=== PATIENT | male | born 1940 | race Caucasian/White ===

== ENCOUNTER 2023-08-20 07:41 | Inpatient (IN) | payer BC ==
[2023-08-20] VITALS (14 sets, daily range): BP systolic 136–155; BP diastolic 63–80; PULSE 60–77; RESP 16–21; TEMP 97.6–98.5; O2SAT 90–100
[~2023-08-20] VITALS: Ht 180.3 cm; Wt 104.2 kg
[~2023-08-20 07:41] MED LIST: ACET-1304 PO; ACETAMINOPHEN IV 100 ML IV ONE; CHLO25TA2 PO; GLIM2TAB33 PO; MET50T PO; ROSU20TA14 PO; ceFAZolin 2 GM/D5W100ml 100 ML IV ONE
[2023-08-20] MEDS ORDERED: TRANEXAMIC ACID 20 ML ONE (07:54)
[2023-08-20] MEDS ORDERED: BUPIVACAINE HCL 0.25% P/F 10 ML VIAL ONE (07:56)
[2023-08-20] MEDS ORDERED: VANCOMYCIN HCL 1000 MG VL ONE (07:58)
[2023-08-20] MEDS ORDERED: PREGABALIN CAPSULE 75 MG CAP PO ONE (08:15)
[2023-08-20] MEDS ORDERED: ACETAMINOPHEN IV 1000 MG/100ML (10MG/ML) IV ONE (08:15)
[2023-08-20] MEDS ORDERED: CELECOXIB 100 MG CAP PO ONE (08:15)
[2023-08-20] MEDS ORDERED: fentaNYL CITRATE 100 MCG/2 ML VL ONE (08:47)
[2023-08-20] MEDS ORDERED: MIDAZOLAM HCL 2MG/2ML 2ml VIAL (1mg/ml) ONE (08:47)
[2023-08-20] MEDS ORDERED: TETRACAINE 1% INJ 2 ML VIAL IJ ONE (09:08)
[2023-08-20] MEDS ORDERED: HYDROmorphone HCL 2 MG/ML VL/or syr IV PRN ×2 (09:30→10:00)
[2023-08-20] MEDS ORDERED: ONDANSETRON HCL 4 MG/2 ML VIAL IV PRN ×2 (09:30→10:00)
[2023-08-20] MEDS ORDERED: NITROGLYCERIN 0.4 MG SL TAB SL PRN (09:30)
[2023-08-20] MEDS ORDERED: MORPHINE SULFATE INJ 2 MG/ml SYRG IV PRN (09:30)
[2023-08-20] MEDS ORDERED: DEXTROSE (50%) 50ML SYRG IV PRN (09:30)
[2023-08-20] MEDS ORDERED: ACETAMINOPHEN 325 MG TAB PO PRN (09:30)
[2023-08-20] MEDS: ceFAZolin 1GM/50ML 50 ML IV SCH ×3 (09:30→22:32)
[2023-08-20] MEDS ORDERED: ePHEDrine SULFATE 50 MG/ML AMP IV PRN (10:00)
[2023-08-20] MEDS ORDERED: MIDAZOLAM HCL 2MG/2ML 2ml VIAL (1mg/ml) IV PRN (10:00)
[2023-08-20] MEDS ORDERED: NALOXONE HCL 0.4 MG/ML VIAL IV PRN (10:00)
[2023-08-20] MEDS ORDERED: LABETALOL HCL 5 MG/ML 4ML SYRINGE IV PRN (10:00)
[2023-08-20] MEDS ORDERED: DexAMETHasone SOD PHOS 10MG/1ML VIAL INJ IV PRN (10:00)
[2023-08-20] MEDS ORDERED: ACCU-CHEK COMFORT CURVE STRIP VI ONE (10:00)
[2023-08-20] MEDS ORDERED: DexAMETHasone SOD PHOS 10MG/1ML VIAL INJ ONE (10:23)
[2023-08-20] MEDS ORDERED: PROPOFOL 10 MG/ML 20 ML IV ONE (10:23)
[2023-08-20] MEDS: InsuLIN REG 1unit/0.01ml Soln (100units/ml) SC SCH ×3 (11:05→22:00)
[2023-08-20] MEDS: ACCU-CHEK COMFORT CURVE STRIP VI SCH ×3 (11:05→22:31)
[2023-08-20] MEDS: SODIUM CHLOR 0.9% PF (SALINE LOCK) 10ML VIAL/SYR IV SCH ×2 (14:00→22:31)
[2023-08-20 15:17] LABS: Basophils # (auto) 0 10 ^3/uL (0-0.2); Basophils % (auto) 0.3 % (0.0-2.0); Eosinophils # (auto) 0 10 ^3/uL (0-0.8); Eosinophils % (auto) 0.1 % (0.0-7.0); Hematocrit 42.1 % (41.0-53.0); Lymphocytes # (auto) 0.8 10 ^3/uL (0.4-5.4); Lymphocytes % (auto) 7.1 % (10.0-50.0); Mean Corpuscular Hemoglobin 32.9 pg (28.0-32.0); Mean Corpuscular Hgb Conc. 33.3 g/dL (32.0-36.0); Mean Corpuscular Volume 98.7 fL (80.0-100.0); Monocytes # (auto) 0.2 10 ^3/uL (0-1.3); Monocytes % (auto) 1.6 % (0.0-12.0); Neutrophils # (auto) 9.9 10 ^3/uL (1.6-8.6); Neutrophils % (auto) 90.9 % (37.0-80.0); Red Blood Cells 4.26 10^6/uL (4.5-5.90); Red Cell Distribution Width 12.7 % (11.8-14.3); White Blood Cell 10.9 10^3/uL (4.4-10.8)
[2023-08-20 15:30] LABS: INR 1.08 (0.9-1.15); Prothrombin Time 11.3 sec (9.3-11.8)
[2023-08-20 15:46] LABS: Alanine Aminotransferase 37 U/L (7-40); Alkaline Phosphatase 70 U/L (46-116); Anion Gap 7 (5-15); Aspartate Aminotransferase 29 U/L (13-40); BUN/Creatinine Ratio 22.7 (10.0-20.0); Blood Urea Nitrogen 27 mg/dL (9-23); Calcium 8.8 mg/dL (8.5-10.1); Carbon Dioxide 25 mmol/L (20-30); Chloride 105 mmol/L (98-107); Glucose 199 mg/dL (74-106); LDL Cholesterol 76 mg/dL (< 100); Potassium 4.4 mmol/L (3.5-5.1); Sodium 137 mmol/L (136-145); Triglycerides 199 mg/dL (< 150)
[2023-08-20 15:47] LABS: Bilirubin, Total 0.4 mg/dL (0.2-1.0); Cholesterol 134 mg/dL (< 200); HDL Cholesterol 27 mg/dL (40-59); Total Protein 6.3 g/dL (5.7-8.2)
[2023-08-20 15:58] LABS: Magnesium 1.8 mg/dL (1.6-2.6)
[2023-08-20] MEDS: GLIMEPIRIDE 2 MG TAB PO SCH ×2 (17:28→22:31)
[2023-08-20] MEDS: LACTATED RINGER'S 1,000 ML IV SCH ×2 (17:28→19:30)
[2023-08-20] MEDS: Chlorthalidone 25 MG PO SCH (17:28)
[2023-08-20] MEDS: DOCUSATE SOD 100 MG CAP PO SCH ×2 (17:29→22:31)
[2023-08-20] MEDS: METOPROLOL TARTRATE 50 MG TAB PO SCH (17:29)
[2023-08-20] MEDS: ENOXAPARIN SOD 40 MG/0.4 ML SYRINGE SC SCH (17:29)
[2023-08-20] MEDS: ATORVASTATIN 20 MG TAB PO SCH (22:31)
[2023-08-21] VITALS (22 sets, daily range): BP systolic 92–158; BP diastolic 42–88; PULSE 60–85; RESP 17–20; TEMP 98.1; O2SAT 92–100
[2023-08-21] MEDS: OXYCODONE W/ ACETAMINOPHEN 5/325MG TABLET PO PRN ×2 (03:28→20:14)
[2023-08-21] MEDS: SODIUM CHLOR 0.9% PF (SALINE LOCK) 10ML VIAL/SYR IV SCH ×3 (06:00→21:16)
[2023-08-21] MEDS: InsuLIN REG 1unit/0.01ml Soln (100units/ml) SC SCH ×4 (06:26→21:18)
[2023-08-21] MEDS: ACCU-CHEK COMFORT CURVE STRIP VI SCH ×4 (06:26→21:19)
[2023-08-21 06:32] LABS: Basophils # (auto) 0 10 ^3/uL (0-0.2); Basophils % (auto) 0.1 % (0.0-2.0); Eosinophils # (auto) 0 10 ^3/uL (0-0.8); Hematocrit 40.9 % (41.0-53.0); Hemoglobin 14.1 g/dL (13.5-17.5); Lymphocytes # (auto) 0.9 10 ^3/uL (0.4-5.4); Lymphocytes % (auto) 5.7 % (10.0-50.0); Mean Corpuscular Hemoglobin 33.3 pg (28.0-32.0); Mean Corpuscular Hgb Conc. 34.3 g/dL (32.0-36.0); Mean Corpuscular Volume 97.1 fL (80.0-100.0); Monocytes # (auto) 0.7 10 ^3/uL (0-1.3); Monocytes % (auto) 4.6 % (0.0-12.0); Neutrophils # (auto) 13.7 10 ^3/uL (1.6-8.6); Neutrophils % (auto) 89.6 % (37.0-80.0); Red Blood Cells 4.22 10^6/uL (4.5-5.90); Red Cell Distribution Width 12.5 % (11.8-14.3); White Blood Cell 15.3 10^3/uL (4.4-10.8)
[2023-08-21 06:44] LABS: Anion Gap 12 (5-15); Carbon Dioxide 20 mmol/L (20-30); Chloride 103 mmol/L (98-107); Potassium 4.1 mmol/L (3.5-5.1); Sodium 135 mmol/L (136-145)
[2023-08-21 06:45] LABS: Calcium 8.7 mg/dL (8.7-10.4)
[2023-08-21 06:50] LABS: BUN/Creatinine Ratio 19.3 (10.0-20.0); Blood Urea Nitrogen 26 mg/dL (9-23); Glucose 216 mg/dL (74-106)
[2023-08-21] MEDS: Chlorthalidone 25 MG PO SCH (10:00)
[2023-08-21] MEDS: DOCUSATE SOD 100 MG CAP PO SCH ×2 (10:45→21:17)
[2023-08-21] MEDS: ENOXAPARIN SOD 40 MG/0.4 ML SYRINGE SC SCH (10:45)
[2023-08-21] MEDS: GLIMEPIRIDE 2 MG TAB PO SCH ×2 (10:49→21:10)
[2023-08-21] MEDS: METOPROLOL TARTRATE 50 MG TAB PO SCH (10:50)
[2023-08-21] MEDS: ATORVASTATIN 20 MG TAB PO SCH (21:17)
[2023-08-22] MEDS ORDERED: HALOPERIDOL LACTATE 5 MG/ML INJ VIAL IM PRN (03:30)
[2023-08-22] MEDS: OXYCODONE W/ ACETAMINOPHEN 5/325MG TABLET PO PRN ×2 (04:01→15:02)
[2023-08-22 05:00] VITALS: BP 140/60; PULSE 82; RESP 18; TEMP 98; O2SAT 92
[2023-08-22] MEDS: SODIUM CHLOR 0.9% PF (SALINE LOCK) 10ML VIAL/SYR IV SCH ×2 (05:47→14:00)
[2023-08-22] MEDS: InsuLIN REG 1unit/0.01ml Soln (100units/ml) SC SCH ×3 (06:41→17:00)
[2023-08-22] MEDS: ACCU-CHEK COMFORT CURVE STRIP VI SCH ×3 (06:41→17:00)
[2023-08-22 06:52] LABS: Basophils # (auto) 0 10 ^3/uL (0-0.2); Basophils % (auto) 0.1 % (0.0-2.0); Eosinophils # (auto) 0 10 ^3/uL (0-0.8); Eosinophils % (auto) 0.2 % (0.0-7.0); Hematocrit 40.9 % (41.0-53.0); Hemoglobin 13.7 g/dL (13.5-17.5); Lymphocytes # (auto) 1.4 10 ^3/uL (0.4-5.4); Lymphocytes % (auto) 10.2 % (10.0-50.0); Mean Corpuscular Hemoglobin 32.6 pg (28.0-32.0); Mean Corpuscular Hgb Conc. 33.6 g/dL (32.0-36.0); Mean Corpuscular Volume 97.1 fL (80.0-100.0); Monocytes # (auto) 1.5 10 ^3/uL (0-1.3); Monocytes % (auto) 10.5 % (0.0-12.0); Neutrophils # (auto) 11.1 10 ^3/uL (1.6-8.6); Red Blood Cells 4.21 10^6/uL (4.5-5.90); Red Cell Distribution Width 12.7 % (11.8-14.3)
[2023-08-22 07:00] LABS: Alanine Aminotransferase 25 U/L (7-40); Albumin 4.2 g/dL (3.2-4.8); Alkaline Phosphatase 63 U/L (46-116); Anion Gap 12 (5-15); Aspartate Aminotransferase 41 U/L (13-40); BUN/Creatinine Ratio 18.4 (10.0-20.0); Blood Urea Nitrogen 27 mg/dL (9-23); Calcium 9.5 mg/dL (8.5-10.1); Carbon Dioxide 22 mmol/L (20-30); Chloride 105 mmol/L (98-107); Glucose 183 mg/dL (74-106); Potassium 3.7 mmol/L (3.5-5.1); Sodium 139 mmol/L (136-145)
[2023-08-22 07:01] LABS: Bilirubin, Total 0.6 mg/dL (0.2-1.0)
[2023-08-22 08:00] VITALS: PULSE 86; PULSE 91; RESP 19; O2SAT 100
[2023-08-22] MEDS ORDERED: LACTATED RINGER'S 1,000 ML IV ONE (08:30)
[2023-08-22 09:25] VITALS: BP 123/54; PULSE 86; RESP 18; TEMP 98.2; O2SAT 96
[2023-08-22] MEDS: ENOXAPARIN SOD 40 MG/0.4 ML SYRINGE SC SCH (09:32)
[2023-08-22] MEDS: Chlorthalidone 25 MG PO SCH (09:34)
[2023-08-22] MEDS: DOCUSATE SOD 100 MG CAP PO SCH (09:34)
[2023-08-22] MEDS: METOPROLOL TARTRATE 50 MG TAB PO SCH (09:34)
[2023-08-22] MEDS: GLIMEPIRIDE 2 MG TAB PO SCH (09:34)
[2023-08-22 13:00] VITALS: BP 115/44; PULSE 65; RESP 18; TEMP 98; O2SAT 94
[2023-08-22 15:30] VITALS: BP 115/44; PULSE 65; RESP 18; TEMP 98; O2SAT 95
[2023-08-22 16:25] VITALS: BP 155/57; PULSE 62; RESP 20; O2SAT 96
[2023-08-22] MEDS ORDERED: GLYCERIN ADULT RECTAL SUPP PR ONE (16:45)
== END 2023-08-22 17:51 | DRG 470 ==
LOC: SUR 07:41 → TELE 09:31 → TELE-CENTR 16:01 → CENTRAL 08-21 15:12 → TELE-CENTR 08-21 15:16
PROVIDERS: ADMIT Orthopaedic Surgery Adult Reconstructive Orthopaedic Surgery; ATTEND Orthopaedic Surgery Adult Reconstructive Orthopaedic Surgery
PROC: 0SRC0J9 Replacement of Right Knee Joint with Synthetic Substitute, Cemented, Open Approach (ICD-10-PCS; principal; 2023-08-20 09:18)
DX: M17.11 Unilateral primary osteoarthritis, right knee (principal); N17.9 Acute kidney failure, unspecified; I12.9 Hypertensive chronic kidney disease with stage 1 through stage 4 chronic kidney disease, or unspecified chronic kidney disease; E11.22 Type 2 diabetes mellitus with diabetic chronic kidney disease; N18.2 Chronic kidney disease, stage 2 (mild); Z82.49 Family history of ischemic heart disease and other diseases of the circulatory system; Z79.84 Long term (current) use of oral hypoglycemic drugs
CPT/HCPCS: 36415; 73562; 76775; 80048; 80053; 80061; 82962; 83036; 83735; 84443; 85025; 85610; 86850; 86900; 86901; 97110; 97116; 97163; G0378; J0131; J1100; J2250; J2704; J3490